=== PATIENT | male | born 1985 | race African-American/Black ===

== ENCOUNTER 2018-03-05 20:19 | Emergency (ER) | payer OTHER ==
[~2018-03-05] VITALS: Ht 175.3 cm; Wt 99.0 kg
[2018-03-05 21:03] LABS: HEMATOCRIT 40.4 % (38.0-50.0); HEMOGLOBIN 12.4 G/DL (12.5-16.6); MCH 27.6 PG (29.0-34.0); MCHC 30.7 G/DL (30.0-36.0); MCV 89.8 FL (86-99); NRBC (%) 0.4 /100 WBC (0-0); RBC DIS.WIDTH-CV 13.8 % (11.8-14.6); WHITE BLOOD COUNT 4.8 K/uL (4.1-10.2)
[2018-03-05 21:37] LABS: TROP-I INTERPRETATION NEGATIVE; TROPONIN-I < 0.01 ng/mL (0.0-0.30)
[2018-03-05 21:42] LABS: AMYLASE 192 IU/L (1-118); CHLORIDE 103 MEQ/L (99-109); CREATININE 1.6 MG/DL (0.6-1.3); GFR ESTIMATE (CALCULATED) > 59 mL/min/ (58.99-99999); GLUCOSE 273 mg/dL (70-99); LIPASE 43 U/L (1.0-51.0); POTASSIUM 6.3 MEQ/L (3.7-5.4); SERUM ETHYL ALCOHOL 77 mg/dL; SODIUM 154 MEQ/L (136-147); UREA NITROGEN (BUN) 14 mg/dL (9-23)
[2018-03-05 21:52] LABS: ABS NEUTROPHIL COUNT 0.6; ATYPICAL LYMPHOCYTE 17.1 %; BAND NEUTROPHILS 1.8 % (0-8.0); EOSINOPHIL ABS CT 0; LYMPHOCYTES 70.3 % (15.0-45.0); PLAT.SUFFICIENCY DECREASED; PLATELET COUNT 53 K/uL (156-360); SEG.NEUTROPHILS 10.8 % (46.0-76.0)
[2018-03-05 22:51] LABS: INTER. NORMALIZED RATIO 1.1
[2018-03-05 22:54] LABS: PTT 36.4 SEC (25-37)
== END 2018-03-06 00:32 ==
LOC: EME 20:19 → EDBD 20:19 → EME 03-06 00:32
PROVIDERS: Emergency Medicine
PROC: 5A12012 Performance of Cardiac Output, Single, Manual (ICD-10-PCS; principal; 2018-03-05)
DX: I46.9 Cardiac arrest, cause unspecified (principal); F10.129 Alcohol abuse with intoxication, unspecified; E87.5 Hyperkalemia; E87.2 Acidosis; Y90.3 Blood alcohol level of 60-79 mg/100 ml
CPT/HCPCS: 80047; 80048; 81003; 82150; 83605; 83690; 84484; 84999; 85025; 85610; 85730; 86850; 86900; 86901; 87040; 87801; 92950; 99281; 99285; G0480